=== PATIENT | female | born 1945 | race Caucasian/White ===

== ENCOUNTER 2016-07-21 16:05 | Inpatient (IN) ==
[2016-07-21] MEDS ORDERED: Naloxone 0.4 MG/ML INJ IVP PRN (19:59)
[2016-07-21] MEDS ORDERED: Ondansetron 4 MG/2 ML VIAL IVP PRN (19:59)
[2016-07-21] MEDS ORDERED: MOM Conc 10 ML UD.LIQ PO PRN (19:59)
--- NOTE | 2016-07-21 20:28 | Internal Med History&Physical ---
Date of Encounter: 07/21/16 Time of Encounter: 20:10 Assessment and Plan (1) Hip fracture, left Current visit: Yes Status: Acute Pt fell at home 2 days ago onto carpet onto L hip. Was at [facility] in [place] due to increasing pain and was found to have comminuted subcapital cervical fracture of the L proximal femur with angulation. Pt had been ambulatory for last 2 days, however, today while walking her dog, the pain became unbearable. She states that pain begins at L hip and radiates into L groin. Pt has palpable pedal pulses. I spoke with Dr. Barker who is aware that pt is here and is an add-on for surgery in the morning. Pain control Ortho consult EKG for surgical clearance Repeat labs in a.m. NPO after midnight Qualifiers: Encounter type: initial encounter Fracture type: closed Qualified Code(s) : S72.002A - Fracture of unspecified part of neck of left femur, initial encounter for closed fracture (2) Leukocytosis Current visit: Yes Status: Acute Most likely due to 2 day history of fracture. Will continue to monitor, labs in a.m. Qualifiers: Leukocytosis type: unspecified Qualified Code(s): D72.829 - Elevated white blood cell count, unspecified (3) Migraine Current visit: Yes Status: Chronic Migraines well controlled with home medications. Pt states they are infrequent. Will continue home medications after surgery. Qualifiers: Migraine type: without aura Status migrainosus presence: without status migrainosus Qualified Code(s): G43.009 - Migraine without aura, not intractable, without status migrainosus (4) Mitral valve regurgitation Current visit: Yes Status: Chronic Pt follow cardiology near her home. Has echo q3 years, last one about a year ago and per daughter, there had been no change. Systolic murmur 2/6 noted at L sternal border. Rhythm regular. EKG will be done for surgical clearance. Qualifiers: Cardiac valve disease etiology: etiology unspecified Qualified Code(s): I34.0 - Nonrheumatic mitral (valve) insufficiency Internal Medicine - H&P: HPI Chief complaint: L hip pain x 2 days s/p fall Admitted From: Hospital to Hospital Transfer Plans for Post Hospital Care: Home History of present illness: Ms. Mittal is a 70 year old female with history of migrains, hyperlipidemia, and mitral valve regurgitation. Pt fell at home 2 days ago, fell inside home on carpet after tripping on chair leg. Pt has been ambulatory with increasing pain x 2 days. Pt was at [facility] in [place] today and transferred here due to limited ortho coverage at outlying hospital. Hip and pelvix CT done at [facility] shows comminuted subcapital cervical fracture of the left proximal femur with angulation through the apex with surrounding hematoma. Pt has bounding pedal pulses to BLE. Past Med Surg Social Fam HX - Past Medical History Medical history: GERD, hyperlipidemia Psychiatric history: no psych history - Social History Smoking Status: Former smoker Smokeless Tobacco Status: No Alcohol use: none Drug use: none - Family History Father Living Status: Hx Family Cancer: Yes Internal Medicine - H&P: Meds Acetaminophen [Tylenol] 500 mg PO Q6HR PRN 07/21/16 [History] Acetaminophen w/Cod 300-30 mg [Tylenol w/Codeine #3] 1 each PO Q6H PRN 07/21/16 [History] Atorvastatin Calcium [Lipitor] 20 mg PO DAILY 07/21/16 [History] Oxybutynin Chloride [Ditropan Xl] 5 mg PO HS 07/21/16 [History] Tizanidine HCl 8 mg PO HS 07/21/16 [History] Topiramate [Topamax] 100 mg PO DAILY 07/21/16 [History] Allergies dexlansoprazole [From Kapidex] Allergy (Verified 07/21/16 20:29) Anaphylaxis Family at bedside states patient was told to stay away from all PPI's, however , she can take Zantac okay with no problems. All Systems PM: A 10-system review of systems was performed and is negative for pertinent findings except as documented above in the HPI. - Constitutional Constitutional: falls, no fever(s), no weakness - Cardiovascular Cardiovascular ROS IM: no chest pain, no lightheadedness, no palpitations - Respiratory Respiratory: no cough, no dyspnea, no dyspnea on exertion, no wheezing, no chest congestion - Gastrointestinal Gastrointestinal: no abdominal pain, no constipation, no diarrhea, no nausea, no vomiting - Genitourinary Genitourinary: no dysuria - Musculoskeletal Musculoskeletal ROS IM: arthralgias, limited range of motion - Integumentary Integumentary IM: no rash - Constitutional Vitals: Temp Pulse Resp BP Pulse Ox 99.7 F H 95 17 165/88 96 07/21/16 18:43 07/21/16 18:43 07/21/16 18:43 07/21/16 18:43 07/21/16 18:43 General appearance: Present: cooperative, A&O X 3, pleasant, no acute distress, answers questions appropriately - Head Head exam: Present: atraumatic, normal inspection - Eye Eye exam: Present: normal appearance, conjuntiva pink - ENT ENT exam: Present: mucous membranes moist, normal external ear exam - Neck Neck exam general surgery: Present: full ROM, normal inspection. Absent: lymphadenopathy, tenderness - Respiratory Respiratory exam: Present: CTAB. Absent: accessory muscle use, chest wall tenderness, decreased breath sounds, rales, respiratory distress, rhonchi, wheezes - Cardiovascular Cardiovascular exam: Present: RRR, systolic murmur Additional comments: Pt has mitral valve regurgitation. - GI/Abdominal GI/Abdominal exam: Present: normal bowel sounds, soft. Absent: distended, guarding, hepatomegaly, tenderness - Extremities Exam Extremities exam: Present: normal capillary refill, warm, radial pulses palpable and symetrical. Absent: calf tenderness, cyanotic, full ROM, pedal edema Additional comments: +2 pedal pulses sharfi. - Neurological Exam Neurological exam: Present: alert, oriented X3, no focal deficits. Absent: facial droop, speech deficit
[2016-07-21] MEDS: *HR* Morphine 2 MG/ML SYRINGE IVP PRN (21:03)
[2016-07-21] MEDS ORDERED: Ringers Solution, Lactated 1,000 ML IVC SCH (21:15)
[2016-07-21] MEDS: Acetaminophen 325 MG TABLET PO PRN (23:22)
[2016-07-22 00:50] LABS: Bilirubin,Urine Negative (Negative); Blood,Urine Small (Negative); Color,Urine Yellow (Yellow); Glucose,Urine (UA) Normal (Normal); Ketones,Urine Negative (Negative); Leukocyte Esterase,Urine Negative (Negative); Nitrite,Urine Negative (Negative); PH,Urine 7.5 pH Units (5.0-8.0); Protein,Urine Trace mg/dL (Neg-Trace); Specific Gravity,Urine 1.018 (1.010-1.025); Urobilinogen,Urine Normal (Normal)
[2016-07-22 00:52] LABS: Bacteria,Urine None Seen per hpf (None-Few); Hyaline Casts,Urine None Seen per lpf (None-Few); RBC,Urine 15-30 per hpf (0-3); Squamous Epithelial Cell,Urine Moderate per lpf (None-Few); WBC,Urine 0-3 per hpf (0-3)
[2016-07-22 00:54] LABS: Clarity,Urine Cloudy (Clear)
[2016-07-22] MEDS: *HR* Morphine 2 MG/ML SYRINGE IVP PRN ×2 (01:10→05:40)
[2016-07-22] MEDS: Mag Hydrox/Al Hydrox/Simeth 30 ML UDC PO PRN ×2 (05:54→11:58)
[2016-07-22] MEDS ORDERED: *HR* OxyCODONE/APAP 5/325 TABLET PO ONE (07:06)
[2016-07-22 07:14] LABS: Basophils % 0.3 %; Eosinophils # 0.1 K/mcL (0.0-0.6); Eosinophils % 0.5 %; Hematocrit 38.5 % (35.3-44.9); Hemoglobin 12.5 g/dL (11.5-15.4); Immature Granulocytes % 0.4 % (0-4); Lymphocytes # 1.1 K/mcL (0.6-4.6); Mean Corpuscular HGB Conc 32.5 g/dL (31.6-35.5); Mean Corpuscular Hemoglobin 29.1 pg (28.0-33.3); Mean Corpuscular Volume 89.7 fL (83.0-100.0); Mean Platelet Volume 10.2 fL (9.4-12.4); Monocytes # 0.7 K/mcL (0.0-1.3); Monocytes % 7.7 %; Neutrophils # 7.6 K/mcL (1.6-8.9); Platelet Count 182 K/mcL (140-400); Red Blood Count 4.29 M/mcL (3.82-4.97); Red Cell Distribution Width 12.8 % (11.5-14.5); Segmented Neutrophils % 80.1 %
--- NOTE | 2016-07-22 07:22 | Orthopedic Consult Note ---
Date of Encounter: 07/22/16 Time of Encounter: 07:19 Assessment and Plan (1) Hip fracture, left Current Visit: Yes Status: Acute At this point I discussed the diagnosis in great detail with the patient as well as her daughter who is present. The patient has a left displaced femoral neck fracture. Treatment options were discussed and the recommendation was for prosthetic replacement to provide pain control and facilitate nursing care. I discussed the procedure in detail. The risks discussed included but were not limited to bleeding, infection, anesthesia risks, damage to neurovascular structures, tendons, ligaments, and bone. Also discussed was the risk of continued symptoms and possible need for further procedures. I did discuss the reasonable foreseeable postoperative course. I explained all this to the patient several times and she wished to proceed and consent was obtained. Nothing by mouth and plan for surgery today. Qualifiers: Encounter type: initial encounter Fracture type: closed Qualified Code(s) : S72.002A - Fracture of unspecified part of neck of left femur, initial encounter for closed fracture History of Present Illness HPI: Ms. Mittal is a 70 year old female who is an unassisted community ambulator who lives independently. She sustained a fall in her kitchen which was non- syncopal Monday which caused left groin pain. She felt the pain would improve and was able to ambulate for the next few days until she felt the pain suddenly increase without fall. She was unable to put any weight down on the left lower extremity after this and presented to the [facility] emergency department. The scan was obtained at that facility which demonstrated a displaced femoral neck fracture. The patient was then transferred to our hospitalist here [place]. I was asked to see the patient in consultation. He complains of isolated pain to the left groin which radiates distally throughout the thigh. No numbness, tingling, or any other associated signs or symptoms. Movement makes the pain worse. The pain is sharp. She denies any headaches, neck pain, chest pain, abdominal pain, bilateral [place] Dm, and right lower extremity pain. She denies any loss of consciousness. Past Med Surg Social Fam HX - Past Medical History Medical history: GERD, hyperlipidemia Psychiatric history: no psych history - Social History Smoking Status: Former smoker Smokeless Tobacco Status: No Alcohol use: none Drug use: none - Family History Father Living Status: Hx Family Cancer: Yes Medications and Allergies Acetaminophen [Tylenol] 500 mg PO Q6HR PRN 07/21/16 [History] Acetaminophen w/Cod 300-30 mg [Tylenol w/Codeine #3] 1 each PO Q6H PRN 07/21/16 [History] Atorvastatin Calcium [Lipitor] 20 mg PO DAILY 07/21/16 [History] Oxybutynin Chloride [Ditropan Xl] 5 mg PO HS 07/21/16 [History] Tizanidine HCl 8 mg PO HS 07/21/16 [History] Topiramate [Topamax] 100 mg PO DAILY 07/21/16 [History] Allergies dexlansoprazole [From Kapidex] Allergy (Verified 07/21/16 20:29) Anaphylaxis Family at bedside states patient was told to stay away from all PPI's, however , she can take Zantac okay with no problems. All Systems Reviewed: Constitutional and musculoskeletal systems were reviewed and are negative unless otherwise stated in history of present illness. Physical Exam - Constitutional Vitals: Temp Pulse Resp BP Pulse Ox 99.9 F H 78 16 159/78 98 07/22/16 05:09 07/22/16 05:09 07/22/16 05:09 07/22/16 05:09 07/22/16 05:09 Constitutional -Vitals reviewed -The patient is well developed and well nourished. -Mood is pleasant. -The patient is well groomed. Psychiatric -The patient is fully alert and oriented x 3. Respiratory: -Respiratory effort normal Abdomen: -Soft abdomen -Non tender -Non distended: Left upper extremity: -No deformities. The overlying skin is intact. No obvious signs of acute trauma. -No tenderness to palpation throughout. -No significant pain with passive motion of the shoulder, elbow, wrist, and fingers within the limits of the bed. -Able to make an "OK" sign, cross the index and long fingers, and extend the thumb. -Sensation grossly intact to light touch throughout the median, radial, and ulnar distributions. -Radial pulse is present; Fingers have good capillary refill. Right upper extremity: -No deformities. The overlying skin is intact. No obvious signs of acute trauma. -No tenderness to palpation throughout. -No significant pain with passive motion of the shoulder, elbow, wrist, and fingers within the limits of the bed. -Able to make an "OK" sign, cross the index and long fingers, and extend the thumb. -Sensation grossly intact to light touch throughout the median, radial, and ulnar distributions. -Radial pulse is present; Fingers have good capillary refill. Left lower extremity: -The extremity is shortened and externally rotated. The overlying skin is intact. -There is tenderness in the groin region as well as the proximal lateral thigh. -I did not range the hip due to the known fracture. -No tenderness along the distal thigh, leg, ankle, foot, or toes. -Able to dorsiflex and plantarflex the ankle and toes. -Sensation is grossly intact to light touch throughout the sural, saphenous, superficial peroneal, and deep peroneal distributions. -Toes have good capillary refill. Right lower extremity: -No deformities. The overlying skin is intact. No obvious signs of acute trauma. -No tenderness to palpation throughout. -No pain with passive motion of the hip, knee, ankle, and toes within the limits of the bed. -No pain with axial loading of the thigh. -Able to dorsiflex and plantarflex the ankle and toes. -Sensation is grossly intact to light touch throughout the sural, saphenous, superficial peroneal, and deep peroneal distributions. -Toes have good capillary refill. Results - Labs Result Diagrams: 07/22/16 06:38 Labs: Abnormal lab results Urine Clarity Cloudy (Clear) A 07/22/16 00:40 Urine Blood Small (Negative) H 07/22/16 00:40 Urine Microscopic RBC 15-30 per hpf (0-3) H 07/22/16 00:40 Ur Squamous Epith Cells Moderate per lpf (None-Few) H 07/22/16 00:40 H & H 07/22/16 Range/Units 06:38 Hgb 12.5 (11.5-15.4) g/dL Hct 38.5 (35.3-44.9) % All other labs normal. - Diagnostic results Hip CT: image reviewed (Head CT does demonstrate a left displaced femoral neck fracture.) Consult Discharge Plan - Plan Referrals: Iza Ren, CHILD CARE SPECIALIST [Primary Care Provider] -
[2016-07-22 07:24] LABS: BUN/Creatinine Ratio 17 (6-26); Blood Urea Nitrogen 16 mg/dL (7-20); Calcium 8.9 mg/dL (8.6-10.8); Carbon Dioxide 21 mEq/L (19-29); Chloride 108 mEq/L (98-109); Glucose 125 mg/dL (70-99); Osmolality,Calculated 291 (280-300); Potassium 4.1 mEq/L (3.5-4.5); Sodium 139 mEq/L (136-145); eGFR For African Americans > 60 (> 60); eGFR For Non-African Americans > 60 (> 60)
[2016-07-22 07:57] LABS: INR 1.2; Prothrombin Time 12.8 Seconds (9.4-12.1)
[2016-07-22] MEDS ORDERED: *HR* Labetalol 20 MG/4 ML SYRINGE IVP PRN (07:58)
[2016-07-22 08:00] LABS: BUN/Creatinine Ratio 17 (6-26); Blood Urea Nitrogen 16 mg/dL (7-20); Calcium 8.9 mg/dL (8.6-10.8); Carbon Dioxide 20 mEq/L (19-29); Chloride 107 mEq/L (98-109); Glucose 121 mg/dL (70-99); Osmolality,Calculated 288 (280-300); Sodium 138 mEq/L (136-145); eGFR For African Americans > 60 (> 60); eGFR For Non-African Americans > 60 (> 60)
[2016-07-22 08:02] LABS: Hematocrit 37.7 % (35.3-44.9); Hemoglobin 12.1 g/dL (11.5-15.4); Mean Corpuscular HGB Conc 32.1 g/dL (31.6-35.5); Mean Corpuscular Hemoglobin 28.9 pg (28.0-33.3); Mean Corpuscular Volume 90.2 fL (83.0-100.0); Mean Platelet Volume 10.1 fL (9.4-12.4); Platelet Count 177 K/mcL (140-400); Red Blood Count 4.18 M/mcL (3.82-4.97); Red Cell Distribution Width 12.9 % (11.5-14.5)
--- NOTE | 2016-07-22 09:02 | Internal Med Progress Note ---
Date of Encounter: 07/22/16 Time of Encounter: 09:00 - Assessment and plan (1) Hip fracture, left Current Visit: Yes Status: Acute Assessment and plan: planned for surgery today ORtho has been consulted patinet is low C-Pperi operative risk for the proposed surgery post op care as per ortho, DVT prophylais. continue home meds. Qualifiers: Encounter type: initial encounter Fracture type: closed Qualified Code(s) : S72.002A - Fracture of unspecified part of neck of left femur, initial encounter for closed fracture (2) Migraine Current Visit: Yes Status: Chronic Assessment and plan: stable Qualifiers: Migraine type: without aura Status migrainosus presence: without status migrainosus Qualified Code(s): G43.009 - Migraine without aura, not intractable, without status migrainosus (3) Mitral valve regurgitation Current Visit: Yes Status: Chronic Assessment and plan: stable. follows with her own claim clinician echo q3yr and was told that it has been stable denies any symptoms from that. Qualifiers: Cardiac valve disease etiology: etiology unspecified Qualified Code(s): I34.0 - Nonrheumatic mitral (valve) insufficiency - Time Spent With Patient 25 - 35 minutes - Subjective Interval history: seen at the bedside, c/o moderate pain and heart burn s/p fall. reports allergy to PPIs PMH of mitral regurg for which he follows with his claim clinician every 3 yrs and says that it has been stable. denies RUSSELL, chest pain and sob. - Constitutional Vitals: Temp Pulse Resp BP Pulse Ox 99.4 F 75 14 170/91 95 07/22/16 07:28 07/22/16 07:28 07/22/16 07:28 07/22/16 07:28 07/22/16 07:28 General appearance: Present: cooperative, A&O X 3, pleasant, no acute distress, answers questions appropriately Exam: neck- supple chest- b/l clear, no added sounds CVs-s1 and s2, murmur+ abd-soft, non tender, bs are present ext- no edema Internal Medicine: Result - Labs CBC & Chem 7: 07/22/16 07:36 07/22/16 07:36 Labs: Short CBC 07/22/16 07/22/16 Range/Units 06:38 07:36 WBC 9.5 10.1 (4.3-11.1) K/mcL Hgb 12.5 12.1 (11.5-15.4) g/dL Hct 38.5 37.7 (35.3-44.9) % Plt Count 182 177 (140-400) K/mcL Neutrophils # 7.6 (1.6-8.9) K/mcL BMP 07/22/16 07/22/16 06:38 07:36 Sodium 139 138 Potassium 4.1 4.0 Chloride 108 107 Carbon Dioxide 21 20 BUN 16 16 Creatinine 0.92 0.92 Glucose 125 H 121 H Calcium 8.9 8.9 Urine 07/22/16 Range/Units 00:40 Urine Color Yellow (Yellow) Urine Clarity Cloudy A (Clear) Urine pH 7.5 (5.0-8.0) pH Units Ur Specific [place] 1.018 (1.010-1.025) Urine Protein Trace (Neg-Trace) mg/dL Urine Glucose (UA) Normal (Normal) mg/dL - ABG Interpretation ABG results: PT/INR, D-dimer PT 12.8 Seconds (9.4-12.1) H 07/22/16 07:36 - Impressions Impressions Femur X-Ray 07/22/16 07:16 IMPRESSION: Acute traumatic left femoral neck fracture. The degree of foreshortening may be minimally increased. D/ / Garfield Mello MD / Garfield Mello MD Interpreting Provider: Garfield Mello MD Consult Discharge Plan - Plan Referrals: Iza Ren, RECOVERY ANALYST [Primary Care Provider] -
[2016-07-22] MEDS ORDERED: Famotidine 20 MG/2 ML VIAL IVP SCH (09:05)
[2016-07-22] MEDS: *HR* HYDROmorphone 2 MG/ML SYRINGE IVP PRN ×2 (10:50→23:53)
--- NOTE | 2016-07-22 14:08 | Anesthesia Evaluation PreOp ---
<Michael Castellano - Last Filed: 07/22/16 14:06> Date of Encounter: 07/22/16 Time of Encounter: 14:06 - Past History Planned Operation: L hip hemiarthroplast Pulmonary History: Former smoker Other Medical History: GERD Anesthesia History: No Prior Anesthetic Complications, Past Anesthesia Alcohol Use: none Drug use: none Medications and Allergies Acetaminophen [Tylenol] 500 mg PO Q6HR PRN 07/21/16 [History] Acetaminophen w/Cod 300-30 mg [Tylenol w/Codeine #3] 1 each PO Q6H PRN 07/21/16 [History] Atorvastatin Calcium [Lipitor] 20 mg PO DAILY 07/21/16 [History] Oxybutynin Chloride [Ditropan Xl] 5 mg PO HS 07/21/16 [History] Tizanidine HCl 8 mg PO HS 07/21/16 [History] Topiramate [Topamax] 100 mg PO DAILY 07/21/16 [History] Allergies dexlansoprazole [From Kapidex] Allergy (Verified 07/21/16 20:29) Anaphylaxis Family at bedside states patient was told to stay away from all PPI's, however , she can take Zantac okay with no problems. - Meds/Allergy Pre-op Review Medications Reviewed: Yes Allergies Reviewed: Yes Beta Blockers on Current Med List: No Anesthesia Results - Labs 07/22/16 07:36 07/22/16 07:36 Anesthesia Exam O2 Sat Height 1.68 m Weight 74 kg O2 Sat by Pulse Oximetry 96 O2 Sat by Pulse Oximetry 95 O2 Sat by Pulse Oximetry 98 O2 Sat by Pulse Oximetry 93 O2 Sat by Pulse Oximetry 96 Vital Signs Temp Pulse Resp BP Pulse Ox 99.7 F H 95 17 165/88 96 07/21/16 18:43 07/21/16 18:43 07/21/16 18:43 07/21/16 18:43 07/21/16 18:43 Height: 1.68 Weight: 74 NPO (# of Hours): >8 Anesthesia Assess/Plan ASA Score: 3 Modified [place] Scale for Level of Consciousness: Cooperative, oriented, and tranquil Anesthetic Plan: General Monitoring Plan: Standard Monitors Recovery Plan: PACU <Ilya Cat - Last Filed: 07/22/16 15:29> Date of Encounter: 07/22/16 - Past History Cardiac History: Denies any Significant Hx FLOW TRADER History: Denies Any Significant HX Other Medical History: Denies Any Significant HX : No Anesthesia Results - Labs 07/22/16 07:36 07/22/16 07:36 - Imaging EKG: image reviewed (SR, old in [place]) Anesthesia Exam Vital Signs/O2 Sat, Most Current Temp Pulse Resp BP Pulse Ox 98.1 F 65 14 151/83 96 07/22/16 11:06 07/22/16 11:06 07/22/16 11:06 07/22/16 11:06 07/22/16 11:06 - HEENT Pupil (Motor): Pupils equal, EOMI Mallampati: II Teeth: Missing Denture Type: Upper: Complete (lower jaw all implants) Oral Opening: Greater than 3 - FLOW TRADER LOC: Oriented FLOW TRADER Motor: Normal RUE, Normal LUE, Normal RLE, Normal LLE, Normal Face FLOW TRADER Sensory: Normal: RUE, LUE, RLE, LLE, Face - Cardiac Rhythm: Regular Murmur: None JVD: No Carotid Bruit: No - Pulmonary Breath Sounds: bilateral Clear Respiratory Effort: Symmetrical Anesthesia Assess/Plan ASA Score: 3
[2016-07-22] MEDS ORDERED: Vancomycin 1,000 MG VIAL ONE (15:30)
[2016-07-22] MEDS ORDERED: *HR* FentaNYL (PF) 100 MCG/2 ML VIAL ONE (15:44)
[2016-07-22] MEDS ORDERED: *HR* Propofol 200 MG/20 ML VIAL IVP ONE (15:44)
[2016-07-22] MEDS ORDERED: *HR* Succinylcholine 200 MG/10 ML VIAL IVP ONE (15:45)
[2016-07-22] MEDS ORDERED: Ondansetron 4 MG/2 ML VIAL ONE (15:57)
[2016-07-22] MEDS ORDERED: Dexamethasone 4 MG/ML VIAL ONE (15:57)
[2016-07-22] MEDS ORDERED: *HR* Phenylephrine 10 MG/ML VIAL ONE (17:05)
[2016-07-22] MEDS ORDERED: Ringers Solution, Lactated 1,000 ML IVC SCH (17:45)
[2016-07-22] MEDS ORDERED: *HR* HYDROmorphone (PF) 1 MG/ML SYRINGE IVP PRN (18:12)
[2016-07-22] MEDS ORDERED: *HR* HYDROmorphone (PF) 1 MG/ML SYRINGE ONE (18:21)
--- NOTE | 2016-07-22 18:27 | Orthopedic Operative Note ---
Date of procedure: 07/22/16 Procedure: OPERATIVE REPORT DATE OF PROCEDURE: 07/03/2016 SURGEON: Derrick Barker MD MOLDING FITTER(S): There are no assistants PREOPERATIVE DIAGNOSIS: Left displaced femoral neck fracture POSTOPERATIVE DIAGNOSIS: Left displaced femoral neck fracture PROCEDURE: Left hip hemiarthroplasty ANESTHESIA: General anesthesia PREOPERATIVE ANTIBIOTICS: 2 g of Ancef ESTIMATED BLOOD LOSS: 200 milliliters TOURNIQUET TIME: There was no tourniquet SPECIMENS: There were no specimens IMPLANTS: DePuy Corail size 8 stem, +5 neck, size 46 mm head LOCAL INJECTION: None PREOPERATIVE NOTE AND INDICATIONS: Evy is a 70-year-old female with a right displaced femoral neck fracture. Treatment options were discussed and the recommendation was for prosthetic replacement in order to control pain and facilitate nursing care. The surgical plan was discussed with the patient. The risks, benefits, alternatives, and potential complications of this procedure were discussed with the patient including injury to veins, arteries, nerves, tendons, ligaments, and bone. Also discussed were the risks of infection, bleeding, pain, blood clots, the possible need for a blood transfusion, the possible need for further procedures, heart attack, stroke, and . Specific risks for this procedure include dislocation, femoral fracture, infection. All of this was explained in simple terms, and the patient verbalized understanding and wished to proceed. Consent was given to proceed with surgery. PROCEDURE: The patient was seen in the preoperative holding area where the identify and the consent were confirmed. The right hip was marked. Final questions were answered. The patient was brought back to the operating room and placed supine on the operating room table. A huddle was performed with the patient and all vital surgical team members confirming patient identity, the correct procedure, and the correct operative site. General anesthesia was administered. The right thigh was prepped and draped in the usual sterile fashion. A surgical time out was performed immediately preceding the incision with all personnel in the operating room to confirm patient identity, the correct operative site and extremity, correct radiographic studies, availability of appropriate surgical equipment, and agreement on the planned procedure. The posterior lateral incision was made and dissection proceeded through the subcutaneous tissue down to the fascia. This was opened in line with the femur and the gluteus prakash muscle and fascia was split bluntly. The Charnley retractor was placed. The loose areolar tissue was dissected off the proximal lateral femur and the short external rotators were exposed. A Cobra retractor was placed underneath the abductors. The piriformis was taken down and tagged. The capsule and short external rotators were taken off as a single sling and also tagged. The fracture was identified. A Cobra was placed inferiorly. The neck was osteotomized a centimeter above the lesser trochanter. The femoral head was removed with a corkscrew and the size measured 46 mm. Pulvinar and the round ligament was debrided. The 46 mm sizer was placed into the socket and there was a good suction fit. The femoral neck elevator was used and the box osteotome used to open the proximal femur. The canal finder was placed. Broaching began starting with a size 8 and the size 8 had excellent rotational stability. The standard neck and 46 mm trial were placed. The hip was articulated and was stable through a functional range of motion, but felt a bit short. Therefore, the hip was retrialed with the +5 neck and was felt to be appropriate. The hip was disarticulated and the trial components taken out. The wound was copiously irrigated and the definitive size 8 stem was placed. The definitive 46 mm head was impacted onto the stem with the +5 neck. The hip was re-articulated and again was stable through a functional range of motion. After final thorough irrigation, 1 g of vancomycin powder was placed into the joint capsule and the capsule was closed by drilling a bone tunnel through the greater trochanter and tied down. The piriformis was also reattached to the abductor insertion. The deep layer was closed with interrupted #1 Vicryl stitches. A gentle irrigation was performed and the incision closed with interrupted 0 Vicryl and 3-0 Vicryl stitches followed by dayanara. A sterile dressing was placed. The instrument, sponge, and needle counts were correct after wound closure. POST OPERATIVE PLAN: Weight Bearing: As tolerated DVT Prophylaxis: Aspirin 325 mg by mouth twice a day Activity: As tolerated with the help of physical therapy Wound Care: To the dressing clean, dry, and intact Pain Control: Per the primary team Perioperative antibiotic prophylaxis: 2 doses of Ancef Social work for discharge planning Follow Up: 2 weeks
--- NOTE | 2016-07-22 18:30 | Orthopedics Progress Note ---
Date of Encounter: 07/22/16 Time of Encounter: 18:27 - Assessment and Plan (1) Hip fracture, left Current Visit: Yes Status: Acute At this point I discussed the diagnosis in great detail with the patient as well as her daughter who is present. The patient has a left displaced femoral neck fracture. Treatment options were discussed and the recommendation was for prosthetic replacement to provide pain control and facilitate nursing care. I discussed the procedure in detail. The risks discussed included but were not limited to bleeding, infection, anesthesia risks, damage to neurovascular structures, tendons, ligaments, and bone. Also discussed was the risk of continued symptoms and possible need for further procedures. I did discuss the reasonable foreseeable postoperative course. I explained all this to the patient several times and she wished to proceed and consent was obtained. Nothing by mouth and plan for surgery today. Qualifiers: Encounter type: initial encounter Fracture type: closed Qualified Code(s) : S72.002A - Fracture of unspecified part of neck of left femur, initial encounter for closed fracture Subjective Interval history: S: Seen in PACU. Drowsy but arousable. No complaints. O: Afeb, VSS; Left hip dressing is dry. She flexes and extends at the left ankle and toes. The foot is sensate and well perfused. X-rays show the left hip hemiarthroplasty is intact. A: Post left hip hemiarthroplasty P: WBAT, PT/OT, ASA for DVT ppx, pain control, ha out tomorrow. Objective Vital signs: Vital Signs Temp Pulse Resp BP Pulse Ox 07/22/16 18:10 98.8 F 80 16 157/86 94 L 07/22/16 18:00 87 16 149/85 96 07/22/16 17:50 87 16 151/90 99 07/22/16 17:40 97.6 F 79 16 149/76 97 07/22/16 11:06 98.1 F 65 14 151/83 96 07/22/16 07:28 99.4 F 75 14 170/91 95 07/22/16 05:09 99.9 F H 78 16 159/78 98 07/21/16 23:51 99.9 F H 86 16 159/90 93 L 07/21/16 18:43 99.7 F H 95 17 165/88 96 Intake and Output 07/22/16 07/22/16 07/22/16 07:59 15:59 23:59 Output Total 750 / 750 625 / 625 Balance -750 / -750 -625 / -625 Output: Catheter 750 / 750 625 / 625 - Labs CBC & BMP: 07/22/16 07:36 07/22/16 07:36 Labs: Abnormal lab results PT 12.8 Seconds (9.4-12.1) H 07/22/16 07:36 Glucose 121 mg/dL (70-99) H 07/22/16 07:36 Urine Clarity Cloudy (Clear) A 07/22/16 00:40 Urine Blood Small (Negative) H 07/22/16 00:40 Urine Microscopic RBC 15-30 per hpf (0-3) H 07/22/16 00:40 Ur Squamous Epith Cells Moderate per lpf (None-Few) H 07/22/16 00:40 Consult Discharge Plan - Plan Additional Instructions: DISCHARGE INSTRUCTIONS Dr. Barker Total Hip Replacement/Hip Hemiarthroplasty Wound Care -Keep wound / incision area clean and dry. -Dressing to remain in place until post-operative day 7, then change dressing daily with dry gauze and paper tape. -No baths or swimming until otherwise instructed. -After 14 days, you may begin to shower only if no drainage is present. No submerging the wound under standing water until cleared by your physician (no baths, hot tubs, swimming pools, etc). Sponge baths are the best way to perform personal hygiene while at the same time protecting the wound from moisture. -No scrubbing the wound. You may "pad dry" the wound, but do not rub, as this may open up he wound and pre-dispose to wound infection. -Do not apply lotions or creams to incision site, unless instructed otherwise. -Observe for redness, swelling, or drainage. Please call the clinic immediately if you have fevers, chills with warmth/redness surrounding wound site or if you notice pus drainage from the wound site Activity -No heavy lifting objects greater than 10 pounds. -No driving while on narcotic pain medication. -You may be weight-bear as tolerated on both of your lower extremities. -Use crutches or a walker for ambulation. -Posterior hip precautions for 6 weeks: No bending the hip past 90 degrees. Do not allow the leg to cross the midline of your body (adduction). No twisting motions. Ask your physical therapist to review these precautions with you. Reducing the Risk of Blood Clots -You will need to complete a total 4 week course of enteric coated aspirin 325 mg twice daily. -Wear knee high compression hose 23 hours per day. Discharge Pain Medications -You will be given a prescription for pain medication. Wean off as tolerated. Do not wait to take the pain medication until the pain is severe, as it will be difficult to "catch up" once this occurs. The pain medication usually reaches its full effect ~1 hour after ingesting. -Your prescribed pain medication may contain Tylenol. You must be careful not to exceed 4,000 mg (4 g) of Tylenol (or generic equivalent), from all sources, within a single 24-hour period. -Some common side effects of the narcotic pain medications (Percocet, Oxycodone , Vicodin, etc) include nausea and itching. Benadryl is a great over the counter medication that helps calm your stomach, decreases your anxiety levels, and minimizes the itching. You can easily purchase this at your local pharmacy as an wndh-rfv-wetaogf medication. Please abide by the instructions as printed on t-he bottle. If your nausea persists, make sure to take small amounts of crackers or other explosive ordnance disposal technician foods. Follow-Up -Follow-up with Dr. Barker office in 2 weeks from the surgery date for a post- operative evaluation. -Call the office at [phone] to schedule or confirm your appointment. Referrals: Iza Ren, BLOOD BANK SPECIALIST [Primary Care Provider] -
--- NOTE | 2016-07-22 18:51 | Anesthesia Evaluation Post Op ---
Date of Encounter: 07/22/16 Time of Encounter: 18:51 - Vital Signs Vital Signs: Vital Signs/O2 Sat, Most Current Temp Pulse Resp BP Pulse Ox 98.8 F 86 16 145/82 97 07/22/16 18:10 07/22/16 18:40 07/22/16 18:40 07/22/16 18:40 07/22/16 18:40 - Lungs Lungs: Clear Ascult./Percussion - Airway Airway: Non-obstructed - Cardiovascular Regular Rate - Mental Status Mental Status: Alert & Oriented, Answers Appropriately - Pain Pain Scale: 4 Pain Scale used: Numeric (1 - 10) - Nausea Vomiting Nausea Vomiting: Not Present - Hydration Hydration: NPO, Miller catheter - Discharge PostOp Status: Transfer Patient to floor
[2016-07-22] MEDS: *HR* OxyCODONE/APAP 5/325 TABLET PO PRN (20:29)
[2016-07-22] MEDS: ceFAZolin 2,000 MG in D5% in Water 100 ML IVPB SCH (23:53)
[2016-07-23 05:01] LABS: Hematocrit 31.1 % (35.3-44.9)
[2016-07-23 05:09] LABS: Hemoglobin 10.4 g/dL (11.5-15.4)
[2016-07-23 05:17] LABS: BUN/Creatinine Ratio 20 (6-26); Blood Urea Nitrogen 16 mg/dL (7-20); Calcium 8.2 mg/dL (8.6-10.8); Carbon Dioxide 21 mEq/L (19-29); Chloride 109 mEq/L (98-109); Glucose 118 mg/dL (70-99); Osmolality,Calculated 286 (280-300); Potassium 4.4 mEq/L (3.5-4.5); Sodium 137 mEq/L (136-145); eGFR For African Americans > 60 (> 60); eGFR For Non-African Americans > 60 (> 60)
[2016-07-23] MEDS: *HR* OxyCODONE/APAP 5/325 TABLET PO PRN ×4 (06:07→23:51)
[2016-07-23] MEDS: ceFAZolin 2,000 MG in D5% in Water 100 ML IVPB SCH (08:06)
[2016-07-23] MEDS: Topiramate 100 MG TABLET PO SCH (08:07)
[2016-07-23] MEDS: Famotidine 20 MG/2 ML VIAL IVP SCH (08:07)
[2016-07-23] MEDS ORDERED: *HR* Enoxaparin 40 MG/0.4 ML SYRINGE SQ SCH (09:08)
[2016-07-23] MEDS: *HR* HYDROmorphone 2 MG/ML SYRINGE IVP PRN ×2 (09:48→16:54)
[2016-07-23] MEDS: Acetaminophen 325 MG TABLET PO PRN (09:48)
--- NOTE | 2016-07-23 13:13 | Orthopedics Progress Note ---
Date of Encounter: 07/23/16 Time of Encounter: 13:11 - Assessment and Plan (1) Hip fracture, left Current Visit: Yes Status: Acute Postoperative day #1, status post left hip hemiarthroplasty, doing well Continue OT/PT Continue DVT prophylaxis Discharge planning for rehabilitation or possibly home with home therapy Qualifiers: Encounter type: initial encounter Fracture type: closed Qualified Code(s) : S72.002A - Fracture of unspecified part of neck of left femur, initial encounter for closed fracture Subjective Principal diagnosis: Left hip fracture Interval history: Patient is comfortable for complaints She ambulated well with therapy Left hip: Sings clean dry intact Bilateral calves soft and nontender Neurovascular intact distally Objective Vital signs: Vital Signs Temp Pulse Resp BP Pulse Ox 07/23/16 10:44 98.2 F 84 18 118/73 96 07/23/16 06:58 98.2 F 88 18 119/74 96 07/23/16 03:56 98.9 F 83 18 120/70 99 07/22/16 23:08 99.7 F H 83 18 137/81 96 07/22/16 22:15 99.3 F 84 18 131/85 97 07/22/16 20:15 98.4 F 90 18 134/80 98 07/22/16 19:45 98.2 F 97 16 116/81 98 07/22/16 19:15 98.3 F 78 16 135/83 98 07/22/16 19:00 97.4 F L 78 16 132/78 94 L 07/22/16 18:50 97.4 F L 82 16 128/81 93 L 07/22/16 18:40 86 16 145/82 97 07/22/16 18:30 87 16 141/77 97 07/22/16 18:20 84 16 153/86 94 L 07/22/16 18:10 98.8 F 80 16 157/86 94 L 07/22/16 18:00 87 16 149/85 96 07/22/16 17:50 87 16 151/90 99 07/22/16 17:40 97.6 F 79 16 149/76 97 Intake and Output 07/22/16 07/23/16 07/23/16 23:59 07:59 15:59 Intake Total 100 / 100 460 / 460 Output Total 825 / 825 200 / 200 300 / 300 Balance -825 / -825 -100 / -100 160 / 160 Intake: IV Fluids 100 / 100 100 / 100 Ancef 2,000 MG In 100 / 100 100 / 100 Dextrose 5% 100 ML @ 200 mls/hr IVPB Q8HR AMAURI Rx#: [id number] Oral 360 / 360 Output: Urine 300 / 300 Catheter 825 / 825 200 / 200 Other: Meal Breakfast Percent of Meal Consumed 90% # Voids 1 Incision: clean and dry - Labs CBC & BMP: 07/23/16 04:41 07/23/16 04:41 Labs: Abnormal lab results Hgb 10.4 g/dL (11.5-15.4) L D 07/23/16 04:41 Hct 31.1 % (35.3-44.9) L 07/23/16 04:41 PT 12.8 Seconds (9.4-12.1) H 07/22/16 07:36 Glucose 118 mg/dL (70-99) H 07/23/16 04:41 Calcium 8.2 mg/dL (8.6-10.8) L 07/23/16 04:41 Urine Clarity Cloudy (Clear) A 07/22/16 00:40 Urine Blood Small (Negative) H 07/22/16 00:40 Urine Microscopic RBC 15-30 per hpf (0-3) H 07/22/16 00:40 Ur Squamous Epith Cells Moderate per lpf (None-Few) H 07/22/16 00:40 - VTE Documentation of Mechanical Device: Venous foot pump, device Consult Discharge Plan - Plan Additional Instructions: DISCHARGE INSTRUCTIONS Dr. Barker Total Hip Replacement/Hip Hemiarthroplasty Wound Care -Keep wound / incision area clean and dry. -Dressing to remain in place until post-operative day 7, then change dressing daily with dry gauze and paper tape. -No baths or swimming until otherwise instructed. -After 14 days, you may begin to shower only if no drainage is present. No submerging the wound under standing water until cleared by your physician (no baths, hot tubs, swimming pools, etc). Sponge baths are the best way to perform personal hygiene while at the same time protecting the wound from moisture. -No scrubbing the wound. You may "pad dry" the wound, but do not rub, as this may open up he wound and pre-dispose to wound infection. -Do not apply lotions or creams to incision site, unless instructed otherwise. -Observe for redness, swelling, or drainage. Please call the clinic immediately if you have fevers, chills with warmth/redness surrounding wound site or if you notice pus drainage from the wound site Activity -No heavy lifting objects greater than 10 pounds. -No driving while on narcotic pain medication. -You may be weight-bear as tolerated on both of your lower extremities. -Use crutches or a walker for ambulation. -Posterior hip precautions for 6 weeks: No bending the hip past 90 degrees. Do not allow the leg to cross the midline of your body (adduction). No twisting motions. Ask your physical therapist to review these precautions with you. Reducing the Risk of Blood Clots -You will need to complete a total 4 week course of enteric coated aspirin 325 mg twice daily. -Wear knee high compression hose 23 hours per day. Discharge Pain Medications -You will be given a prescription for pain medication. Wean off as tolerated. Do not wait to take the pain medication until the pain is severe, as it will be difficult to "catch up" once this occurs. The pain medication usually reaches its full effect ~1 hour after ingesting. -Your prescribed pain medication may contain Tylenol. You must be careful not to exceed 4,000 mg (4 g) of Tylenol (or generic equivalent), from all sources, within a single 24-hour period. -Some common side effects of the narcotic pain medications (Percocet, Oxycodone , Vicodin, etc) include nausea and itching. Benadryl is a great over the counter medication that helps calm your stomach, decreases your anxiety levels, and minimizes the itching. You can easily purchase this at your local pharmacy as an hlpp-ers-tcfhaom medication. Please abide by the instructions as printed on t-he bottle. If your nausea persists, make sure to take small amounts of crackers or other journal box inspector foods. Follow-Up -Follow-up with Dr. Barker office in 2 weeks from the surgery date for a post- operative evaluation. -Call the office at [phone] to schedule or confirm your appointment. Referrals: Iza Ren, MOLECULAR BIOLOGY PROFESSOR [Primary Care Provider] -
--- NOTE | 2016-07-23 15:03 | Internal Med Progress Note ---
Date of Encounter: 07/23/16 Time of Encounter: 15:00 - Assessment and plan (1) Hip fracture, left Current Visit: Yes Status: Acute Assessment and plan: 1st POD today. ORtho managing post op care. DVT prophylais. continue home meds. Qualifiers: Encounter type: initial encounter Fracture type: closed Qualified Code(s) : S72.002A - Fracture of unspecified part of neck of left femur, initial encounter for closed fracture (2) Migraine Current Visit: Yes Status: Chronic Assessment and plan: stable Qualifiers: Migraine type: without aura Status migrainosus presence: without status migrainosus Qualified Code(s): G43.009 - Migraine without aura, not intractable, without status migrainosus (3) Mitral valve regurgitation Current Visit: Yes Status: Chronic Assessment and plan: stable. 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 Qualifiers: Cardiac valve disease etiology: etiology unspecified Qualified Code(s): I34.0 - Nonrheumatic mitral (valve) insufficiency - Time Spent With Patient 25 - 35 minutes - Subjective Interval history: seen at the bedside,reports no complians today 1st POD, doing well reports allergy to PPIs denies RUSSELL, chest pain and sob. - Constitutional Vitals: Temp Pulse Resp BP Pulse Ox 98.2 F 84 18 118/73 96 07/23/16 10:44 07/23/16 10:44 07/23/16 10:44 07/23/16 10:44 07/23/16 10:44 General appearance: Present: cooperative, A&O X 3, pleasant, no acute distress, answers questions appropriately Exam: neck- supple chest- b/l clear, no added sounds CVs-s1 and s2, murmur+ abd-soft, non tender, bs are present ext- no edema Internal Medicine: Result - Labs CBC & Chem 7: 07/23/16 04:41 07/23/16 04:41 Labs: Short CBC 07/23/16 Range/Units 04:41 Hgb 10.4 L D (11.5-15.4) g/dL Hct 31.1 L (35.3-44.9) % BMP 07/23/16 04:41 Sodium 137 Potassium 4.4 Chloride 109 Carbon Dioxide 21 BUN 16 Creatinine 0.80 Glucose 118 H Calcium 8.2 L - ABG Interpretation ABG results: PT/INR, D-dimer PT 12.8 Seconds (9.4-12.1) H 07/22/16 07:36 - Impressions Impressions Hip X-Ray 07/22/16 17:37 IMPRESSION: 1. Status post left hip arthroplasty. Unremarkable postoperative study. D/ / 07/22/2016 18:16:27 Heber Smith MD / chase Interpreting Provider: Heber Smith MD - VTE Documentation of Mechanical Device: Venous foot pump, device Consult Discharge Plan - Plan Additional Instructions: DISCHARGE INSTRUCTIONS Dr. Barker Total Hip Replacement/Hip Hemiarthroplasty Wound Care -Keep wound / incision area clean and dry. -Dressing to remain in place until post-operative day 7, then change dressing daily with dry gauze and paper tape. -No baths or swimming until otherwise instructed. -After 14 days, you may begin to shower only if no drainage is present. No submerging the wound under standing water until cleared by your physician (no baths, hot tubs, swimming pools, etc). Sponge baths are the best way to perform personal hygiene while at the same time protecting the wound from moisture. -No scrubbing the wound. You may "pad dry" the wound, but do not rub, as this may open up he wound and pre-dispose to wound infection. -Do not apply lotions or creams to incision site, unless instructed otherwise. -Observe for redness, swelling, or drainage. Please call the clinic immediately if you have fevers, chills with warmth/redness surrounding wound site or if you notice pus drainage from the wound site Activity -No heavy lifting objects greater than 10 pounds. -No driving while on narcotic pain medication. -You may be weight-bear as tolerated on both of your lower extremities. -Use crutches or a walker for ambulation. -Posterior hip precautions for 6 weeks: No bending the hip past 90 degrees. Do not allow the leg to cross the midline of your body (adduction). No twisting motions. Ask your physical therapist to review these precautions with you. Reducing the Risk of Blood Clots -You will need to complete a total 4 week course of enteric coated aspirin 325 mg twice daily. -Wear knee high compression hose 23 hours per day. Discharge Pain Medications -You will be given a prescription for pain medication. Wean off as tolerated. Do not wait to take the pain medication until the pain is severe, as it will be difficult to "catch up" once this occurs. The pain medication usually reaches its full effect ~1 hour after ingesting. -Your prescribed pain medication may contain Tylenol. You must be careful not to exceed 4,000 mg (4 g) of Tylenol (or generic equivalent), from all sources, within a single 24-hour period. -Some common side effects of the narcotic pain medications (Percocet, Oxycodone , Vicodin, etc) include nausea and itching. Benadryl is a great over the counter medication that helps calm your stomach, decreases your anxiety levels, and minimizes the itching. You can easily purchase this at your local pharmacy as an shtw-svi-yrbmraz medication. Please abide by the instructions as printed on t-he bottle. If your nausea persists, make sure to take small amounts of crackers or other learning support teacher foods. Follow-Up -Follow-up with Dr. Barker office in 2 weeks from the surgery date for a post- operative evaluation. -Call the office at [phone] to schedule or confirm your appointment. Referrals: Iza Ren, JORGITO [Primary Care Provider] -
[2016-07-23] MEDS: Aspirin Enteric Coated 325 MG Tablet PO SCH ×2 (16:53→21:05)
[2016-07-23] MEDS: Sennosides 8.6 MG TABLET PO SCH (18:02)
[2016-07-24] MEDS: *HR* OxyCODONE/APAP 5/325 TABLET PO PRN ×3 (05:48→19:00)
[2016-07-24 06:20] LABS: Hematocrit 31.7 % (35.3-44.9); Hemoglobin 10.2 g/dL (11.5-15.4)
[2016-07-24 06:35] LABS: BUN/Creatinine Ratio 20 (6-26); Blood Urea Nitrogen 16 mg/dL (7-20); Calcium 8.8 mg/dL (8.6-10.8); Carbon Dioxide 21 mEq/L (19-29); Chloride 106 mEq/L (98-109); Glucose 125 mg/dL (70-99); Osmolality,Calculated 283 (280-300); Potassium 3.8 mEq/L (3.5-4.5); Sodium 135 mEq/L (136-145); eGFR For African Americans > 60 (> 60); eGFR For Non-African Americans > 60 (> 60)
[2016-07-24] MEDS: Topiramate 100 MG TABLET PO SCH (09:05)
[2016-07-24] MEDS: Sennosides 8.6 MG TABLET PO SCH (09:05)
[2016-07-24] MEDS: Aspirin Enteric Coated 325 MG Tablet PO SCH ×2 (09:05→20:08)
[2016-07-24] MEDS: Famotidine 20 MG/2 ML VIAL IVP SCH (09:06)
--- NOTE | 2016-07-24 12:32 | Internal Med Progress Note ---
Date of Encounter: 07/24/16 Time of Encounter: 12:31 - Assessment and plan (1) Hip fracture, left Current Visit: Yes Status: Acute Assessment and plan: 2nd POD today. ORtho managing post op care. DVT prophylais. continue home meds. planned for rehab at [facility]. Qualifiers: Encounter type: initial encounter Fracture type: closed Qualified Code(s) : S72.002A - Fracture of unspecified part of neck of left femur, initial encounter for closed fracture (2) Migraine Current Visit: Yes Status: Chronic Assessment and plan: stable Qualifiers: Migraine type: without aura Status migrainosus presence: without status migrainosus Qualified Code(s): G43.009 - Migraine without aura, not intractable, without status migrainosus (3) Mitral valve regurgitation Current Visit: Yes Status: Chronic Assessment and plan: stable. 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 Qualifiers: Cardiac valve disease etiology: etiology unspecified Qualified Code(s): I34.0 - Nonrheumatic mitral (valve) insufficiency - Time Spent With Patient 25 - 35 minutes - Subjective Interval history: seen at the bedside,reports no complians today 2nd POD, doing well reports allergy to PPIs denies RUSSELL, chest pain and sob. - Constitutional Vitals: Temp Pulse Resp BP Pulse Ox 99.7 F H 91 18 119/82 97 07/24/16 11:16 07/24/16 11:16 07/24/16 11:16 07/24/16 11:16 07/24/16 11:16 General appearance: Present: cooperative, A&O X 3, pleasant, no acute distress, answers questions appropriately Exam: neck- supple chest- b/l clear, no added sounds CVs-s1 and s2, murmur+ abd-soft, non tender, bs are present ext- no edema Internal Medicine: Result - Labs CBC & Chem 7: 07/24/16 06:11 07/24/16 06:11 Labs: Short CBC 07/24/16 Range/Units 06:11 Hgb 10.2 L (11.5-15.4) g/dL Hct 31.7 L (35.3-44.9) % BMP 07/24/16 06:11 Sodium 135 L Potassium 3.8 Chloride 106 Carbon Dioxide 21 BUN 16 Creatinine 0.80 Glucose 125 H Calcium 8.8 - ABG Interpretation ABG results: PT/INR, D-dimer PT 12.8 Seconds (9.4-12.1) H 07/22/16 07:36 - VTE Documentation of Mechanical Device: Venous foot pump, device Consult Discharge Plan - Plan Additional Instructions: DISCHARGE INSTRUCTIONS Dr. Barker Total Hip Replacement/Hip Hemiarthroplasty Wound Care -Keep wound / incision area clean and dry. -Dressing to remain in place until post-operative day 7, then change dressing daily with dry gauze and paper tape. -No baths or swimming until otherwise instructed. -After 14 days, you may begin to shower only if no drainage is present. No submerging the wound under standing water until cleared by your physician (no baths, hot tubs, swimming pools, etc). Sponge baths are the best way to perform personal hygiene while at the same time protecting the wound from moisture. -No scrubbing the wound. You may "pad dry" the wound, but do not rub, as this may open up he wound and pre-dispose to wound infection. -Do not apply lotions or creams to incision site, unless instructed otherwise. -Observe for redness, swelling, or drainage. Please call the clinic immediately if you have fevers, chills with warmth/redness surrounding wound site or if you notice pus drainage from the wound site Activity -No heavy lifting objects greater than 10 pounds. -No driving while on narcotic pain medication. -You may be weight-bear as tolerated on both of your lower extremities. -Use crutches or a walker for ambulation. -Posterior hip precautions for 6 weeks: No bending the hip past 90 degrees. Do not allow the leg to cross the midline of your body (adduction). No twisting motions. Ask your physical therapist to review these precautions with you. Reducing the Risk of Blood Clots -You will need to complete a total 4 week course of enteric coated aspirin 325 mg twice daily. -Wear knee high compression hose 23 hours per day. Discharge Pain Medications -You will be given a prescription for pain medication. Wean off as tolerated. Do not wait to take the pain medication until the pain is severe, as it will be difficult to "catch up" once this occurs. The pain medication usually reaches its full effect ~1 hour after ingesting. -Your prescribed pain medication may contain Tylenol. You must be careful not to exceed 4,000 mg (4 g) of Tylenol (or generic equivalent), from all sources, within a single 24-hour period. -Some common side effects of the narcotic pain medications (Percocet, Oxycodone , Vicodin, etc) include nausea and itching. Benadryl is a great over the counter medication that helps calm your stomach, decreases your anxiety levels, and minimizes the itching. You can easily purchase this at your local pharmacy as an rsyv-tah-jbzouxj medication. Please abide by the instructions as printed on t-he bottle. If your nausea persists, make sure to take small amounts of crackers or other pole lift operator foods. Follow-Up -Follow-up with Dr. Barker office in 2 weeks from the surgery date for a post- operative evaluation. -Call the office at [phone] to schedule or confirm your appointment. Referrals: Iza Ren, CRIMINAL PROFILER [Primary Care Provider] -
[2016-07-24] MEDS: *HR* HYDROmorphone 2 MG/ML SYRINGE IVP PRN ×2 (15:26→23:36)
--- NOTE | 2016-07-24 15:29 | Orthopedics Progress Note ---
Date of Encounter: 07/24/16 Time of Encounter: 15:28 - Assessment and Plan (1) Hip fracture, left Current Visit: Yes Status: Acute Postoperative day #2, status post left hip hemiarthroplasty, doing well Continue OT/PT Continue DVT prophylaxis Discharge planning for rehabilitation tomorrow Qualifiers: Encounter type: initial encounter Fracture type: closed Qualified Code(s) : S72.002A - Fracture of unspecified part of neck of left femur, initial encounter for closed fracture Subjective Principal diagnosis: Left hip fracture Interval history: Patient is comfortable for complaints She ambulated well with therapy Left hip: Dressings were changed and are clean dry intact Bilateral calves soft and nontender Neurovascular intact distally Objective Vital signs: Vital Signs Temp Pulse Resp BP Pulse Ox 07/24/16 15:02 99.2 F 90 18 134/83 93 L 07/24/16 11:16 99.7 F H 91 18 119/82 97 07/24/16 06:42 98.3 F 91 18 118/74 95 07/24/16 00:41 99.0 F 100 16 108/66 98 07/23/16 20:00 99.5 F 101 16 110/69 98 Intake and Output 07/23/16 07/24/16 07/24/16 23:59 07:59 15:59 Intake Total 300 / 300 700 / 700 Output Total 700 / 700 750 / 750 Balance -700 / -700 -450 / -450 700 / 700 Intake: Oral 300 / 300 700 / 700 Output: Urine 700 / 700 750 / 750 Other: Meal Lunch Percent of Meal Consumed 10% Incision: clean and dry - Labs CBC & BMP: 07/24/16 06:11 07/24/16 06:11 Labs: Abnormal lab results Hgb 10.2 g/dL (11.5-15.4) L 07/24/16 06:11 Hct 31.7 % (35.3-44.9) L 07/24/16 06:11 PT 12.8 Seconds (9.4-12.1) H 07/22/16 07:36 Sodium 135 mEq/L (136-145) L 07/24/16 06:11 Glucose 125 mg/dL (70-99) H 07/24/16 06:11 Urine Clarity Cloudy (Clear) A 07/22/16 00:40 Urine Blood Small (Negative) H 07/22/16 00:40 Urine Microscopic RBC 15-30 per hpf (0-3) H 07/22/16 00:40 Ur Squamous Epith Cells Moderate per lpf (None-Few) H 07/22/16 00:40 - VTE Documentation of Mechanical Device: Venous foot pump, device Consult Discharge Plan - Plan Additional Instructions: DISCHARGE INSTRUCTIONS Dr. Barker Total Hip Replacement/Hip Hemiarthroplasty Wound Care -Keep wound / incision area clean and dry. -Dressing to remain in place until post-operative day 7, then change dressing daily with dry gauze and paper tape. -No baths or swimming until otherwise instructed. -After 14 days, you may begin to shower only if no drainage is present. No submerging the wound under standing water until cleared by your physician (no baths, hot tubs, swimming pools, etc). Sponge baths are the best way to perform personal hygiene while at the same time protecting the wound from moisture. -No scrubbing the wound. You may "pad dry" the wound, but do not rub, as this may open up he wound and pre-dispose to wound infection. -Do not apply lotions or creams to incision site, unless instructed otherwise. -Observe for redness, swelling, or drainage. Please call the clinic immediately if you have fevers, chills with warmth/redness surrounding wound site or if you notice pus drainage from the wound site Activity -No heavy lifting objects greater than 10 pounds. -No driving while on narcotic pain medication. -You may be weight-bear as tolerated on both of your lower extremities. -Use crutches or a walker for ambulation. -Posterior hip precautions for 6 weeks: No bending the hip past 90 degrees. Do not allow the leg to cross the midline of your body (adduction). No twisting motions. Ask your physical therapist to review these precautions with you. Reducing the Risk of Blood Clots -You will need to complete a total 4 week course of enteric coated aspirin 325 mg twice daily. -Wear knee high compression hose 23 hours per day. Discharge Pain Medications -You will be given a prescription for pain medication. Wean off as tolerated. Do not wait to take the pain medication until the pain is severe, as it will be difficult to "catch up" once this occurs. The pain medication usually reaches its full effect ~1 hour after ingesting. -Your prescribed pain medication may contain Tylenol. You must be careful not to exceed 4,000 mg (4 g) of Tylenol (or generic equivalent), from all sources, within a single 24-hour period. -Some common side effects of the narcotic pain medications (Percocet, Oxycodone , Vicodin, etc) include nausea and itching. Benadryl is a great over the counter medication that helps calm your stomach, decreases your anxiety levels, and minimizes the itching. You can easily purchase this at your local pharmacy as an [id number] medication. Please abide by the instructions as printed on t-he bottle. If your nausea persists, make sure to take small amounts of crackers or other tetryl screen operator foods. Follow-Up -Follow-up with Dr. Barker office in 2 weeks from the surgery date for a post- operative evaluation. -Call the office at [phone] to schedule or confirm your appointment. Referrals: Iza Ren, SPECIAL NEEDS TUTOR [Primary Care Provider] -
[2016-07-25] MEDS: *HR* OxyCODONE/APAP 5/325 TABLET PO PRN ×2 (05:41→15:00)
[2016-07-25 07:09] VITALS: BP 96/60
--- NOTE | 2016-07-25 07:40 | Orthopedics Progress Note ---
Date of Encounter: 07/25/16 Time of Encounter: 07:38 - Assessment and Plan (1) Hip fracture, left Current Visit: Yes Status: Acute At this point I discussed the diagnosis in great detail with the patient as well as her daughter who is present. The patient has a left displaced femoral neck fracture. Treatment options were discussed and the recommendation was for prosthetic replacement to provide pain control and facilitate nursing care. I discussed the procedure in detail. The risks discussed included but were not limited to bleeding, infection, anesthesia risks, damage to neurovascular structures, tendons, ligaments, and bone. Also discussed was the risk of continued symptoms and possible need for further procedures. I did discuss the reasonable foreseeable postoperative course. I explained all this to the patient several times and she wished to proceed and consent was obtained. Nothing by mouth and plan for surgery today. Qualifiers: Encounter type: initial encounter Fracture type: closed Qualified Code(s) : S72.002A - Fracture of unspecified part of neck of left femur, initial encounter for closed fracture Subjective Principal diagnosis: Left hip fracture Interval history: S: Did well over weekend. Has been up walking back and forth to the bathroom. O: Afeb, VSS; Left hip dressing is dry. She flexes and extends at the left ankle and toes. The foot is sensate and well perfused. A: Post left hip hemiarthroplasty P: WBAT, PT/OT, ASA for DVT ppx, pain control. Rehab today if placed. Follow up in 2 weeks. Objective Vital signs: Vital Signs Temp Pulse Resp BP Pulse Ox 07/25/16 07:07 99.2 F 97 16 96/60 96 07/25/16 03:47 98.6 F 104 15 100/66 97 07/24/16 23:39 98.1 F 98 14 108/71 99 07/24/16 20:51 98.5 F 95 16 124/76 99 07/24/16 15:02 99.2 F 90 18 134/83 93 L 07/24/16 11:16 99.7 F H 91 18 119/82 97 Intake and Output 07/24/16 07/24/16 07/25/16 15:59 23:59 07:59 Intake Total 700 / 700 815 / 815 370 / 370 Output Total 450 / 450 200 / 200 Balance 700 / 700 365 / 365 170 / 170 Intake: Oral 700 / 700 815 / 815 370 / 370 Output: Urine 450 / 450 200 / 200 Other: Meal Lunch Dinner Percent of Meal Consumed 10% 95% # Voids 1 - Labs CBC & BMP: 07/24/16 06:11 07/24/16 06:11 Labs: Abnormal lab results Hgb 10.2 g/dL (11.5-15.4) L 07/24/16 06:11 Hct 31.7 % (35.3-44.9) L 07/24/16 06:11 PT 12.8 Seconds (9.4-12.1) H 07/22/16 07:36 Sodium 135 mEq/L (136-145) L 07/24/16 06:11 Glucose 125 mg/dL (70-99) H 07/24/16 06:11 Urine Clarity Cloudy (Clear) A 07/22/16 00:40 Urine Blood Small (Negative) H 07/22/16 00:40 Urine Microscopic RBC 15-30 per hpf (0-3) H 07/22/16 00:40 Ur Squamous Epith Cells Moderate per lpf (None-Few) H 07/22/16 00:40 - VTE Documentation of Mechanical Device: Venous foot pump, device Consult Discharge Plan - Plan Additional Instructions: DISCHARGE INSTRUCTIONS Dr. Barker Total Hip Replacement/Hip Hemiarthroplasty Wound Care -Keep wound / incision area clean and dry. -Dressing to remain in place until post-operative day 7, then change dressing daily with dry gauze and paper tape. -No baths or swimming until otherwise instructed. -After 14 days, you may begin to shower only if no drainage is present. No submerging the wound under standing water until cleared by your physician (no baths, hot tubs, swimming pools, etc). Sponge baths are the best way to perform personal hygiene while at the same time protecting the wound from moisture. -No scrubbing the wound. You may "pad dry" the wound, but do not rub, as this may open up he wound and pre-dispose to wound infection. -Do not apply lotions or creams to incision site, unless instructed otherwise. -Observe for redness, swelling, or drainage. Please call the clinic immediately if you have fevers, chills with warmth/redness surrounding wound site or if you notice pus drainage from the wound site Activity -No heavy lifting objects greater than 10 pounds. -No driving while on narcotic pain medication. -You may be weight-bear as tolerated on both of your lower extremities. -Use crutches or a walker for ambulation. -Posterior hip precautions for 6 weeks: No bending the hip past 90 degrees. Do not allow the leg to cross the midline of your body (adduction). No twisting motions. Ask your physical therapist to review these precautions with you. Reducing the Risk of Blood Clots -You will need to complete a total 4 week course of enteric coated aspirin 325 mg twice daily. -Wear knee high compression hose 23 hours per day. Discharge Pain Medications -You will be given a prescription for pain medication. Wean off as tolerated. Do not wait to take the pain medication until the pain is severe, as it will be difficult to "catch up" once this occurs. The pain medication usually reaches its full effect ~1 hour after ingesting. -Your prescribed pain medication may contain Tylenol. You must be careful not to exceed 4,000 mg (4 g) of Tylenol (or generic equivalent), from all sources, within a single 24-hour period. -Some common side effects of the narcotic pain medications (Percocet, Oxycodone , Vicodin, etc) include nausea and itching. Benadryl is a great over the counter medication that helps calm your stomach, decreases your anxiety levels, and minimizes the itching. You can easily purchase this at your local pharmacy as an [id number] medication. Please abide by the instructions as printed on t-he bottle. If your nausea persists, make sure to take small amounts of crackers or other gyroscopic instrument mechanic foods. Follow-Up -Follow-up with Dr. Barker office in 2 weeks from the surgery date for a post- operative evaluation. -Call the office at [phone] to schedule or confirm your appointment. Referrals: Iza Ren, INSURANCE SALES ASSOCIATE [Primary Care Provider] -
[2016-07-25] MEDS ORDERED: *HR* OxyCODONE/APAP 5/325 TABLET PO PRN (07:44)
[2016-07-25] MEDS: Aspirin Enteric Coated 325 MG Tablet PO SCH (08:04)
[2016-07-25] MEDS: Topiramate 100 MG TABLET PO SCH (08:04)
[2016-07-25] MEDS: Famotidine 20 MG/2 ML VIAL IVP SCH (08:04)
[2016-07-25] MEDS: Sennosides 8.6 MG TABLET PO SCH (08:04)
[2016-07-25] MEDS: *HR* HYDROmorphone 2 MG/ML SYRINGE IVP PRN (09:48)
[2016-07-25 13:59] LABS: Basophils # 0.1 K/mcL (0.0-0.2); Basophils % 0.4 %; Eosinophils # 0.4 K/mcL (0.0-0.6); Eosinophils % 3.6 %; Hematocrit 32.7 % (35.3-44.9); Hemoglobin 10.7 g/dL (11.5-15.4); Immature Granulocytes % 0.6 % (0-4); Lymphocytes # 1.8 K/mcL (0.6-4.6); Lymphocytes % 15.3 %; Mean Corpuscular HGB Conc 32.7 g/dL (31.6-35.5); Mean Corpuscular Hemoglobin 29.4 pg (28.0-33.3); Mean Corpuscular Volume 89.8 fL (83.0-100.0); Mean Platelet Volume 10.3 fL (9.4-12.4); Monocytes # 1.2 K/mcL (0.0-1.3); Monocytes % 10.3 %; Neutrophils # 8.1 K/mcL (1.6-8.9); Platelet Count 235 K/mcL (140-400); Red Blood Count 3.64 M/mcL (3.82-4.97); Red Cell Distribution Width 12.6 % (11.5-14.5); Segmented Neutrophils % 69.8 %
--- NOTE | 2016-07-25 15:20 | Discharge Summary ---
Date of Encounter: 07/25/16 Time of Encounter: 15:10 - Discharge Diagnosis (1) Hip fracture, left Priority: Primary Status: Acute Qualifiers: Encounter type: initial encounter Fracture type: closed Qualified Code(s) : S72.002A - Fracture of unspecified part of neck of left femur, initial encounter for closed fracture (2) Migraine Priority: Secondary Status: Chronic Qualifiers: Migraine type: without aura Status migrainosus presence: without status migrainosus Intractability: not intractable Qualified Code(s): G43.009 - Migraine without aura, not intractable, without status migrainosus (3) Mitral valve regurgitation Priority: Secondary Status: Chronic Qualifiers: Cardiac valve disease etiology: etiology unspecified Qualified Code(s): I34.0 - Nonrheumatic mitral (valve) insufficiency - Discharge Medications Prescriptions: OxyCODONE/APAP 5/325 [Percocet 5/325 MG] 1 - 2 each PO Q6HR PRN #60 tablet PRN Reason: Pain Aspirin Enteric Coated [Aspirin EC] 325 mg PO DAILY 28 Days Docusate [Colace] 100 mg PO BID PRN #60 capsule PRN Reason: Constipation Sennosides [Senna] 8.6 mg PO DAILY #30 tablet Home Medications: Acetaminophen [Tylenol] 500 mg PO Q6HR PRN 07/21/16 [History] Acetaminophen w/Cod 300-30 mg [Tylenol w/Codeine #3] 1 each PO Q6H PRN 07/21/16 [History] Atorvastatin Calcium [Lipitor] 20 mg PO DAILY 07/21/16 [History] Oxybutynin Chloride [Ditropan Xl] 5 mg PO HS 07/21/16 [History] Tizanidine HCl 8 mg PO HS 07/21/16 [History] Topiramate [Topamax] 100 mg PO DAILY 07/21/16 [History] Aspirin Enteric Coated [Aspirin EC] 325 mg PO DAILY 28 Days 07/25/16 [Rx] Docusate [Colace] 100 mg PO BID PRN #60 capsule 07/25/16 [Rx] OxyCODONE/APAP 5/325 [Percocet 5/325 MG] 1 - 2 each PO Q6HR PRN #60 tablet 07/25 [Rx] Sennosides [Senna] 8.6 mg PO DAILY #30 tablet 07/25/16 [Rx] Allergies/Adverse Reactions: Allergies dexlansoprazole [From Kapidex] Allergy (Verified 07/21/16 20:29) Anaphylaxis Family at bedside states patient was told to stay away from all PPI's, however , she can take Zantac okay with no problems. Date of admission: 07/22/16 01:27 Primary care physician: Iza Ren CNP Consults: 07/21/16 20:43 Consult to Orthopedic Surgery [CONS] Routine Consulting Provider: [facility] Reason for Consult: Spoke with Dr. Barker, he is aware of pt and she is add in for surgery in the a.m. Time Notified: 20:44 Call Completed: Yes 07/22/16 12:17 Consult to Information Receptionist [CONS] Routine Reason for SW Consult: d/c planning 07/22/16 17:40 Consult to Occupational Therapy [CONS] Routine Comment: Evaluate, develop and implement POC Consult to Physical Therapy [CONS] Routine Comment: Evaluate, develop and implement POC Discharging clinician: Suzanna Kumari Anticipated date of discharge: 07/25/16 - Patient Status Disposition: Transfer Inpatient Rehab Fac Condition: Fair Functional capacity at discharge: uses cane/walker Overall status at discharge: patient is progressing back to baseline - Discharge Instructions Follow Up With: Iza Ren CNP [Primary Care Provider] - Additional Instructions: DISCHARGE INSTRUCTIONS Dr. Barker Total Hip Replacement/Hip Hemiarthroplasty Wound Care -Keep wound / incision area clean and dry. -Dressing to remain in place until post-operative day 7, then change dressing daily with dry gauze and paper tape. -No baths or swimming until otherwise instructed. -After 14 days, you may begin to shower only if no drainage is present. No submerging the wound under standing water until cleared by your physician (no baths, hot tubs, swimming pools, etc). Sponge baths are the best way to perform personal hygiene while at the same time protecting the wound from moisture. -No scrubbing the wound. You may "pad dry" the wound, but do not rub, as this may open up he wound and pre-dispose to wound infection. -Do not apply lotions or creams to incision site, unless instructed otherwise. -Observe for redness, swelling, or drainage. Please call the clinic immediately if you have fevers, chills with warmth/redness surrounding wound site or if you notice pus drainage from the wound site Activity -No heavy lifting objects greater than 10 pounds. -No driving while on narcotic pain medication. -You may be weight-bear as tolerated on both of your lower extremities. -Use crutches or a walker for ambulation. -Posterior hip precautions for 6 weeks: No bending the hip past 90 degrees. Do not allow the leg to cross the midline of your body (adduction). No twisting motions. Ask your physical therapist to review these precautions with you. Reducing the Risk of Blood Clots -You will need to complete a total 4 week course of enteric coated aspirin 325 mg twice daily. -Wear knee high compression hose 23 hours per day. Discharge Pain Medications -You will be given a prescription for pain medication. Wean off as tolerated. Do not wait to take the pain medication until the pain is severe, as it will be difficult to "catch up" once this occurs. The pain medication usually reaches its full effect ~1 hour after ingesting. -Your prescribed pain medication may contain Tylenol. You must be careful not to exceed 4,000 mg (4 g) of Tylenol (or generic equivalent), from all sources, within a single 24-hour period. -Some common side effects of the narcotic pain medications (Percocet, Oxycodone , Vicodin, etc) include nausea and itching. Benadryl is a great over the counter medication that helps calm your stomach, decreases your anxiety levels, and minimizes the itching. You can easily purchase this at your local pharmacy as an [id number] medication. Please abide by the instructions as printed on t-he bottle. If your nausea persists, make sure to take small amounts of crackers or other retail district manager foods. Follow-Up -Follow-up with Dr. Barker office in 2 weeks from the surgery date for a post- operative evaluation. -Call the office at [phone] to schedule or confirm your appointment. - Diet and Activity Activity: as per physical therapy Diet: advance to your usual diet Interval History: Ms. Mittal is a 70 year old female who is an unassisted community ambulator who lives independently. She sustained a fall in her kitchen which was non- syncopal Monday which caused left groin pain. She felt the pain would improve and was able to ambulate for the next few days until she felt the pain suddenly increase without fall. She was unable to put any weight down on the left lower extremity after this and presented to the [facility] emergency department. The scan was obtained at that facility which demonstrated a displaced femoral neck fracture. The patient was then transferred to our hospitalist hoang Otto. I was asked to see the patient in consultation. He complains of isolated pain to the left groin which radiates distally throughout the thigh. No numbness, tingling, or any other associated signs or symptoms. Movement makes the pain worse. The pain is sharp. She denies any headaches, neck pain, chest pain, abdominal pain, bilateral [place], and right lower extremity pain. She denies any loss of consciousness. The patient has a left displaced femoral neck fracture. Orthopedic was consulted, she underwent Left hip hemiarthroplasty.Postop care was managed by orthopedics. She remained well, with a PT OT was consulted, she is being discharged to inpatient rehabilitation at this time. Hospital course: Ms. Mittal is a 70 year old female Time spent discussing smoking cessation with patient: more than 10 minutes - Time Spent with Patient Total time spent providing and/or coordinating discharge services: Greater than 30 minutes - Constitutional Vitals: Temp Pulse Resp BP Pulse Ox 99.2 F 97 16 96/60 96 07/25/16 07:07 07/25/16 07:07 07/25/16 07:07 07/25/16 07:07 07/25/16 07:07 General appearance: Present: cooperative, A&O X 3, pleasant, no acute distress, answers questions appropriately Exam: - Head Head exam: Present: atraumatic, normal inspection - Eye Eye exam: Present: normal appearance, conjuntiva pink - ENT ENT exam: Present: mucous membranes moist, normal external ear exam - Neck Neck exam general surgery: Present: full ROM, normal inspection. Absent: lymphadenopathy, tenderness - Respiratory Respiratory exam: Present: CTAB. Absent: accessory muscle use, chest wall tenderness, decreased breath sounds, rales, respiratory distress, rhonchi, wheezes - Cardiovascular Cardiovascular exam: Present: RRR, systolic murmur Additional comments: Pt has mitral valve regurgitation. - GI/Abdominal GI/Abdominal exam: Present: normal bowel sounds, soft. Absent: distended, guarding, hepatomegaly, tenderness - Extremities Exam Extremities exam: Present: normal capillary refill, warm, radial pulses palpable and symetrical. Absent: calf tenderness, cyanotic, full ROM, pedal edema Additional comments: +2 pedal pulses sharif. - Neurological Exam Neurological exam: Present: alert, oriented X3, no focal deficits. Absent: facial droop, speech deficit - VTE Documentation of Mechanical Device: Venous foot pump, device
--- NOTE | 2016-07-25 15:45 | Physician Discharge Referral ---
ExtendedCare Referral Info Transfer To: community health Provider in Charge: praveen dooley Institutional Level of Care: Intermediate - MR - Diagnosis (1) Hip fracture, left Status: Acute (2) Migraine Status: Chronic (3) Mitral valve regurgitation Status: Chronic - Transfer Medications Prescriptions: OxyCODONE/APAP 5/325 [Percocet 5/325 MG] 1 each PO Q6HR PRN #30 tablet PRN Reason: Pain Aspirin Enteric Coated [Aspirin EC] 325 mg PO DAILY 28 Days Docusate [Colace] 100 mg PO BID PRN #60 capsule PRN Reason: Constipation Sennosides [Senna] 8.6 mg PO DAILY #30 tablet Home Medications: Acetaminophen [Tylenol] 500 mg PO Q6HR PRN 07/21/16 [History] Acetaminophen w/Cod 300-30 mg [Tylenol w/Codeine #3] 1 each PO Q6H PRN 07/21/16 [History] Atorvastatin Calcium [Lipitor] 20 mg PO DAILY 07/21/16 [History] Oxybutynin Chloride [Ditropan Xl] 5 mg PO HS 07/21/16 [History] Tizanidine HCl 8 mg PO HS 07/21/16 [History] Topiramate [Topamax] 100 mg PO DAILY 07/21/16 [History] Aspirin Enteric Coated [Aspirin EC] 325 mg PO DAILY 28 Days 07/25/16 [Rx] Docusate [Colace] 100 mg PO BID PRN #60 capsule 07/25/16 [Rx] OxyCODONE/APAP 5/325 [Percocet 5/325 MG] 1 each PO Q6HR PRN #30 tablet 07/25/16 [Rx] Sennosides [Senna] 8.6 mg PO DAILY #30 tablet 07/25/16 [Rx] Allergies/Adverse Reactions: Allergies dexlansoprazole [From Kapidex] Allergy (Verified 07/21/16 20:29) Anaphylaxis Family at bedside states patient was told to stay away from all PPI's, however , she can take Zantac okay with no problems. - Respiratory Orders Smoking Cessation: Smoking cessation has been advised. For more information, call the [employer] Tobacco Quit Line at 5-183-HTTS-NOW. - Advance Directives Code Status: Full Code - Mobility Orders Chair, Ambulate - Rehabiliation Orders Rehab Potential: Fair Rehab Orders: Evaluation for Physical Therapy, Evaluation for Occupational Therapy - Diet Orders Regular CERTIFICATION: I certify that the transfer of the above named patient to an Extended Care Facility is necessary for the continuing treatment of the diagnosis listed. The above information is true and accurate reflection of patient's current condition. Confidential - Redisclosure prohibited without a patient's written consent.
== END 2016-07-25 18:24 | DRG 470 ==
LOC: 3NENU
PROVIDERS: ADMIT Family Medicine; ATTEND Internal Medicine Endocrinology, Diabetes & Metabolism